=== PATIENT | male | born 1995 | race Two or more races ===

== ENCOUNTER 2017-11-15 01:51 | Emergency (ER) | payer OTHER ==
[2017-11-15 01:58] VITALS: PULSE 90; RESP 20; O2SAT 100
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
[2017-11-15 02:03] VITALS: BP 126/78; TEMP 97.9
[2017-11-15] MEDS ORDERED: IBUPROFEN 600 MG TAB PO ONE (04:01)
== END 2017-11-15 04:31 | disposition home or self-care (01) ==
PROC: 0HQ0XZZ Repair Scalp Skin, External Approach (ICD-10-PCS; principal; 2017-11-15)
DX: S01.01XA Laceration without foreign body of scalp, initial encounter (principal); F10.129 Alcohol abuse with intoxication, unspecified; S62.307A Unspecified fracture of fifth metacarpal bone, left hand, initial encounter for closed fracture; W50.0XXA Accidental hit or strike by another person, initial encounter; Y99.8 Other external cause status; Y93.89 Activity, other specified

== ENCOUNTER → 2017-11-16 | Outpatient (CLI) | payer OTHER | LOC: BMCIMAGING 08:23 | PROVIDERS: ATTEND Emergency Medicine | DX: M43.8X2 Other specified deforming dorsopathies, cervical region (principal); M46.92 Unspecified inflammatory spondylopathy, cervical region ==